=== PATIENT | male | born 1945 | race Caucasian/White ===

== ENCOUNTER 2017-12-05 05:46 | Inpatient (IN) | payer BC, MEDICARE ==
--- NOTE | 2017-12-02 10:37 | Diagnostic Imaging Report ---
PROCEDURE: X-RAY CHEST, TWO VIEWS COMPARISON: None. INDICATIONS: PRE OPERATIVE CHEST X-RAY FOR KNEE FINDINGS: LUNGS: Increased basilar interstitial prominence without focal consolidation. No edema. PLEURA: No effusions or pneumothorax. HEART \T\ MEDIASTINUM: The heart is within normal size-limits. Calcification and aortic tortuosity. BONES \T\ SOFT TISSUES: No acute findings. 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 Joint space narrowing of both shoulders. CONCLUSION: Basilar interstitial prominence without focal consolidation. Juan Luis Fuchs D.O. Dictated by: Juan Luis Fuchs D.O. on 12/02/2017 at 10:37 Electronically approved by: Juan Luis Fuchs D.O. on 12/02/2017 at 10:37
[2017-12-02 10:42] LABS: BASOPHILS # (AUTO) 0.1 (0.0-0.1); BASOPHILS % 1.2 % (0.0-1.0); EOSINOPHILS # (AUTO) 0.1 (0.0-0.4); EOSINOPHILS % 1.4 % (0.0-6.0); HEMATOCRIT 43.1 % (38.2-49.6); LYMPHOCYTES # (AUTO) 1.1 (1.0-3.2); LYMPHOCYTES % 17.1 % (18.0-39.1); MEAN CORPUSCULAR HEMOGLOBIN 28.6 pg (28-32); MEAN CORPUSCULAR HGB CONC 32.5 g/dL (31-35); MEAN CORPUSCULAR VOLUME 88.1 fL (81-99); MONOCYTES # (AUTO) 0.9 (0.2-0.8); MONOCYTES % 13.9 % (4.4-11.3); NEUTROPHILS # (AUTO) 4.3 (2.1-6.9); NEUTROPHILS % 65.6 % (38.7-80.0); PLATELET COUNT 255 x10e3/uL (140-360); RED BLOOD COUNT 4.89 x10e6/uL (4.3-5.7); RED CELL DISTRIBUTION WIDTH 14.3 % (11.7-14.4)
[~2017-12-05] VITALS: Ht 180.3 cm; Wt 102.1 kg
[~2017-12-05 05:46] MED LIST: AMLODIPINE BESY10 MG PO; ATORVASTATIN CA20 MG PO; CEFAZOLIN SOD 2 GM/D5W 50ML 50 ML IV ONE; CELECOXIB 200 MG CAP ONE; DEXAMETHASONE SOD PHOS 10 MG/1 ML VIAL ONE; GABAPENTIN 300 MG CAP ONE; MELOXICAM7.5 MG PO; METOPROLOL SUCC50 MG PO; VITAMIN D1000 UNI1 PO; VITAMIN E PO
--- OUTSIDE RECORDS SUMMARY | 2017-12-05 05:49 | XMS REPORT ---
Author Author [facility] Address Unknown Phone Unavailable Care Team Providers Care Circular Knitter Helper Name Role Phone CRISTIANO STUBBS Unavailable Unavailable Problems This patient has no known problems. Allergies, Adverse Reactions, Alerts This patient has no known allergies or adverse reactions. Medications This patient has no known medications. Results Test Description Test Time Test Comments Text Results Atomic Results Result Comments CHEST 2 VIEWS [place] [address] Patient Name: KANDACE NIEVES MR #: [id number] : 1945 Age/Sex: 71/M Req #: [id number] Adm Physician: Ordered by: CRISTIANO STUBBS MD Report #: [id number] Location: OR Room/Bed: Procedure: [id number] DX/CHEST 2 VIEWS Exam Date: 12/02/17 Exam Time: 1021 REPORT STATUS: Signed PROCEDURE: X-RAY CHEST, TWO VIEWS COMPARISON: None. INDICATIONS: PRE OPERATIVE CHEST X-RAY FOR KNEE FINDINGS: LUNGS: Increased basilar interstitial prominence without focal consolidation. No edema. PLEURA: No effusions or pneumothorax. HEART T MEDIASTINUM: The heart is within normal size- limits. Calcification and aortic tortuosity. BONES T SOFT TISSUES: No acute findings. 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 Joint space narrowing of both shoulders. CONCLUSION: Basilar interstitial prominence without focal consolidation. Radha Fuchs D.O. Dictated by: Radha Fuchs D.O. on 12/02/2017 at 10:37 Electronically approved by: Radha Fuchs D.O. on 12/02/2017 at 10:37 Dictated By: RADHA FUCHS DO 1037 Transcribed By: NICOLE on 12/02/17 1037 COPY TO: CRISTIANO STUBBS MD
[2017-12-05] MEDS ORDERED: ROPIVACAINE 246.25 MG, EPINEPHRINE HCL 1:1000 0.5 MG, CLONIDINE HCL 0.08 MG, KETOROLAC ... INJ ONE ×5 (06:00)
[2017-12-05] MEDS ORDERED: CELECOXIB 200 MG CAP ONE (06:12)
[2017-12-05] MEDS ORDERED: MUPIROCIN 2% OINT 22 GM TUBE ONE (06:28)
[2017-12-05] MEDS ORDERED: TRANEXAMIC ACID 1,000 MG/10 ML ML ONE (06:28)
[2017-12-05] MEDS ORDERED: BACITRACIN 50,000 UNIT VIAL ONE (06:28)
[2017-12-05] MEDS ORDERED: SODIUM CHLORIDE 0.9% 1000ML 1,000 ML IV SCH (08:18)
[2017-12-05] MEDS ORDERED: DOCUSATE SODIUM 100 MG CAP PO PRN (08:30)
[2017-12-05] MEDS ORDERED: ACETAMINOPHEN 650 MG SUPP PR PRN (08:30)
[2017-12-05] MEDS ORDERED: ONDANSETRON HCL INJ 2 MG/ML VIAL IV PRN (08:30)
[2017-12-05] MEDS ORDERED: PROMETHAZINE HCL (IM) 25 MG/ML VIAL IM PRN (08:30)
[2017-12-05] MEDS ORDERED: DIPHENHYDRAMINE HCL INJ 50 MG/ML VIAL IM/IV PRN (08:30)
[2017-12-05] MEDS ORDERED: ALBUTEROL SULF 0.083% NEB SOLN 3 ML NEB ONE (08:38)
--- NOTE | 2017-12-05 08:56 | Diagnostic Imaging Report ---
PROCEDURE: X-RAY LEFT KNEE, ONE OR TWO VIEWS COMPARISON: None. INDICATIONS:POST OPERATIVE LEFT KNEE SURGERY FINDINGS: See conclusion. CONCLUSION: Status post total left knee replacement with surrounding soft tissue swelling, air and charles consistent with recent surgery. No acute fractures. Dictated by: Sourav Terrell M.D. on 12/05/2017 at 8:57 Electronically approved by: Sourav Terrell M.D. on 12/05/2017 at 8:57
--- NOTE | 2017-12-05 09:03 | Operative Report ---
DATE OF PROCEDURE: December 05, 2017 RAG WASHER: Nile Wu PA-C The patient was brought to the operating room for induction of anesthesia. Throughout this case, my PA's assistance was necessary for retraction of soft tissue and positioning of the extremity. This allows for efficient and technically successful execution of the operation and is considered medically necessary. PREOPERATIVE DIAGNOSIS: Osteoarthritis, left knee. POSTOPERATIVE DIAGNOSIS: Osteoarthritis, left knee. PROCEDURE: Left total knee arthroplasty. INDICATIONS: The patient is a 71-year-old gentleman who has severe arthritic changes of his left knee. He has failed conservative management and would like to proceed with a left total knee replacement. The risks and benefits of the procedure have been explained. He states he understands and wishes to proceed. DESCRIPTION OF PROCEDURE: The patient was brought to the operating room and placed under general anesthetic. He received prophylactic antibiotics, a regional block and tranexamic acid in the holding area. His left lower extremity was prepped and draped in a sterile manner. A preoperative time out was performed. The extremity was exsanguinated and a proximal tourniquet was inflated to 300 mmHg. An anterior approach with a medial parapatellar arthrotomy was performed. Clear synovial fluid was removed from the joint. Soft tissue releases were performed to bring the knee up into flexion with the patella everted. The remnants of the cruciate ligaments were sacrificed. A Good and Nephew Cari II posterior stabilized knee system was used throughout the case. An extramedullary cutting guide was used to resect the proximal tibia. A +2-mm cut was necessary due to the medial wear. The tibial baseplate was a size #7. The central fin punch was impacted and attention was directed towards the distal femur. An intramedullary cutting guide was used to resect the distal femur in 6 degrees of valgus and rotation referenced off of a combination of landmarks, including Whitesides line, the epicondylar axis and the posterior condyles. The femoral component was also a size #7. The anterior and posterior cuts were made. A trial reduction was performed. An 11 mm ultra congruent tibial insert provided optimal soft tissue balancing in full extension and flexion and 90 degrees of flexion. The patella was resurfaced with a 35 mm x 7.5 mm patellar button. The thickness was checked before and after and was right at 22 mm. Patellar tracking was noted to be concentric. The trial implants were then removed. A 100 mL premixed pericapsular ROLF injection was then placed around the knee. The knee was thoroughly irrigated with a Pulsavac. The components were then cemented into place using Palacos cement pre-loaded with gentamicin. Care was taken to remove extravasated cement. The wound was further irrigated while the cement cured. The arthrotomy was then closed with interrupted #1 Ethibond. The knee was put through flexion and extension to ensure a secure closure. The skin was closed with subcuticular Vicryl and charles. A sterile bandage was applied. The patient was extubated and transported to the recovery room in stable condition. Blood loss was minimal. All needle and sponge counts were correct. Job#: [id number] JANIYA
[2017-12-05 09:50] VITALS: BP 143/65
[2017-12-05] MEDS: HYDROCODONE/APAP 7.5MG-325MG 1 EA TAB PO PRN (10:19)
[2017-12-05 10:23] VITALS: BP 143/65
[2017-12-05 10:24] VITALS: BP 143/65
[2017-12-05 11:39] VITALS: BP_SYST 116; BP_SYST 118; BP_DIAS 59; BP_DIAS 66
[2017-12-05] MEDS: ACETAMINOPHEN 1000 MG/100 ML IV SCH ×3 (11:53→23:25)
[2017-12-05] MEDS: CEFAZOLIN SOD 1 GM VIAL IV SCH ×2 (13:41→23:20)
[2017-12-05] MEDS ORDERED: CEFAZOLIN SOD 1 GM/NS 50ML 50 ML IV SCH (14:00)
[2017-12-05 15:59] VITALS: BP 129/64
[2017-12-05] MEDS: CELECOXIB 100 MG CAP PO SCH (17:00)
[2017-12-05] MEDS: ASPIRIN 325 MG TAB PO SCH (17:00)
[2017-12-05] MEDS: KETOROLAC TROMETHAMINE 30 MG/ML VIAL IV PRN (17:23)
[2017-12-05] MEDS ORDERED: PROPOFOL IV EMULSION 10 MG/ML 20 ML VIAL ONE (18:12)
[2017-12-05] MEDS ORDERED: SEVOFLURANE INHAL SOLN 250 ML PEN BTL ONE (18:12)
[2017-12-05] MEDS ORDERED: ONDANSETRON HCL INJ 2 MG/ML VIAL ONE (18:12)
[2017-12-05] MEDS ORDERED: KETOROLAC TROMETHAMINE 30 MG/ML VIAL ONE (18:12)
[2017-12-05] MEDS ORDERED: LIDOCAINE HCL 2% LOCAL INJ 5 ML SDV VIAL INJ ONE (18:12)
[2017-12-05] MEDS ORDERED: LIDOCAINE 2% /EPINEPHRINE 20 ML SDV INJ ONE (18:16)
[2017-12-05] MEDS ORDERED: ROPIVACAINE 0.5% 5 MG/ML 30 ML SDV ONE (18:16)
[2017-12-05] MEDS ORDERED: FENTANYL CITRATE/PF 100MCG/2 ML INJ ONE (18:34)
[2017-12-05] MEDS ORDERED: MIDAZOLAM HCL 2 MG/2 ML VIAL ONE (18:34)
[2017-12-05 20:00] VITALS: BP 123/61
[2017-12-05] MEDS ORDERED: ATORVASTATIN 20 MG TAB PO SCH (21:00)
[2017-12-05] MEDS ORDERED: ZOLPIDEM TARTRATE 5 MG TAB PO PRN (21:00)
[2017-12-06] VITALS: BP 124/56
[2017-12-06 04:00] VITALS: BP 165/72
[2017-12-06] MEDS: HYDROCODONE/APAP 7.5MG-325MG 1 EA TAB PO PRN ×2 (04:52→11:54)
[2017-12-06] MEDS: ACETAMINOPHEN 1000 MG/100 ML IV SCH (06:00)
[2017-12-06] MEDS: CEFAZOLIN SOD 1 GM VIAL IV SCH (06:04)
[2017-12-06] MEDS: KETOROLAC TROMETHAMINE 30 MG/ML VIAL IV PRN (06:14)
[2017-12-06 07:10] LABS: HEMATOCRIT 38.8 % (38.2-49.6); HEMOGLOBIN 12.3 g/dL (14.0-18.0)
[2017-12-06 07:51] VITALS: BP 147/70
[2017-12-06] MEDS ORDERED: ACETAMINOPHEN 1000 MG/100 ML IV PRN (08:30)
[2017-12-06] MEDS: CELECOXIB 100 MG CAP PO SCH (08:31)
[2017-12-06] MEDS: HYDROCODONE/APAP 5MG-325MG TAB PO PRN ×2 (08:31→13:40)
[2017-12-06] MEDS: ASPIRIN 325 MG TAB PO SCH (08:31)
[2017-12-06] MEDS ORDERED: AMLODIPINE BESYLATE 10 MG TAB PO SCH (09:00)
[2017-12-06] MEDS ORDERED: METOPROLOL SUCCINATE 50 MG TAB XL PO SCH (09:00)
[2017-12-06 09:19] VITALS: BP 147/70
[2017-12-06 11:31] VITALS: BP 145/67
[2017-12-06] MEDS ORDERED: ASPIRIN325 MG PO (11:52)
[2017-12-06] MEDS ORDERED: NORCO 7.5-3251 EACH PO (12:21)
[2017-12-06] MEDS ORDERED: CELECOXIB 200 MG CAP PO SCH (17:00)
== END 2017-12-06 14:19 | disposition home health service (06) | DRG 470 ==
LOC: OR 05:46 → MED/SURG 09:11
PROVIDERS: ADMIT Specialist; ATTEND Specialist
PROC: 0SRD0J9 Replacement of Left Knee Joint with Synthetic Substitute, Cemented, Open Approach (ICD-10-PCS; principal; 2017-12-05 07:00)
DX: M17.0 Bilateral primary osteoarthritis of knee (principal); J44.9 Chronic obstructive pulmonary disease, unspecified; D64.9 Anemia, unspecified; I10 Essential (primary) hypertension; E78.5 Hyperlipidemia, unspecified; G89.18 Other acute postprocedural pain
CPT/HCPCS: 36415; 71046; 85014; 85018; 85025; 86850; 86870; 86880; 86900; 86905; 86922; 93005; 97139; 99001; C1713; J0171; J0690; J1100; J1885; J2001; J2250; J2405; J2795